=== PATIENT | male | born 1995 | race Hispanic/Latino ===

== ENCOUNTER 2018-05-31 17:31 | Emergency (ER) | payer BC ==
[~2018-05-31] VITALS: Ht 167.6 cm; Wt 84.4 kg
[2018-05-31] MEDS ORDERED: NAPROSYN500 MG PO (19:53)
[2018-05-31 21:54] VITALS: BP 120/88
== END 2018-05-31 20:45 | disposition home or self-care (01) ==
LOC: FSED 17:31
DX: R30.0 Dysuria (principal); R31.9 Hematuria, unspecified; N50.819 Testicular pain, unspecified
CPT/HCPCS: 76870; 81003; 99283

== ENCOUNTER 2020-01-25 13:05 | Emergency (ER) | payer BC ==
[~2020-01-25] VITALS: Ht 167.6 cm; Wt 84.4 kg
[~2020-01-25 13:05] MED LIST: NAPROSYN500 MG PO
[2020-01-25] MEDS ORDERED: CEFTRIAXONE SOD 1 GM VIAL IM NR (13:15)
[2020-01-25] MEDS ORDERED: HYDROCODONE/APAP 10MG-325MG TAB PO NR (13:15)
[2020-01-25 13:29] LABS: BILIRUBIN,URINE NEGATIVE (NEGATIVE); CLARITY,URINE CLEAR (CLEAR); COLOR,URINE YELLOW (YELLOW); KETONES,URINE NEGATIVE (NEGATIVE); LEUKOCYTE ESTERASE ,URINE NEGATIVE (NEGATIVE); MUCUS,URINE RARE (RARE); NITRITE,URINE NEGATIVE (NEGATIVE); PROTEIN,URINE DIPSTICK NEGATIVE (NEGATIVE); RBC,URINE 0-5 /HPF (0-5); URINE UROBILINOGEN 0.2 mg/dL (0.2 - 1); WBC,URINE (MAN) 0-5 /HPF (0-5)
[2020-01-25] MEDS ORDERED: AZITHROMYCIN 250 MG TAB PO ONE (15:15)
--- NOTE | 2020-01-25 15:25 | Diagnostic Imaging Report ---
EXAMINATION: Scrotal ultrasound CLINICAL INDICATION: Testicular pain. COMPARISON: None. TECHNIQUE: Grayscale and color Doppler evaluation of the scrotum was performed in transverse and longitudinal planes. FINDINGS: The right testicle measures 5.1 x 2.6 x 3.9 cm. No masses or calcifications.. The right epididymis measures 1 cm. No nodules or masses.. No right hydrocele. Small Varicocele. Normal flow to the right testicle, without torsion. The left testicle has been removed. The scrotum has a normal appearance, without focal lesions. Impression: No testicular torsion Signed by: Dr. Jesse Jhaveri M.D. on 01/25/2020 3:22 PM
== END 2020-01-25 16:50 | disposition home or self-care (01) ==
LOC: ER 13:05
DX: R30.0 Dysuria (principal); N50.811 Right testicular pain; N45.1 Epididymitis
CPT/HCPCS: 76870; 81001; 87086; 93976; 99284; J0696

== ENCOUNTER 2021-08-13 10:45 | Emergency (ER) | payer BC ==
[~2021-08-13] VITALS: Ht 167.6 cm; Wt 84.4 kg
[2021-08-13] MEDS ORDERED: OFLOXACIN5 ML OT (11:24)
== END 2021-08-13 11:32 | disposition home or self-care (01) ==
LOC: ER 11:26
DX: H92.01 Otalgia, right ear (principal)
CPT/HCPCS: 99283

== ENCOUNTER 2022-09-26 18:23 | Emergency (ER) | payer SELFPAY ==
[~2022-09-26] VITALS: Ht 167.6 cm; Wt 84.4 kg
[~2022-09-26 18:23] MED LIST changes: +OFLOXACIN5 ML OT
== END 2022-09-26 21:30 | disposition home or self-care (01) ==
LOC: ER 18:25
DX: R51.9 Headache, unspecified (principal); S00.83XA Contusion of other part of head, initial encounter; W01.0XXA Fall on same level from slipping, tripping and stumbling without subsequent striking against object, initial encounter; Y92.89 Other specified places as the place of occurrence of the external cause
CPT/HCPCS: 70450; 99283

== ENCOUNTER 2024-07-05 13:30 | Emergency (ER) | payer BC ==
[~2024-07-05] VITALS: Ht 167.6 cm; Wt 93.9 kg
[~2024-07-05 13:30] MED LIST changes: +AZITHROMYCIN250 MG PO; +FIORICET 50-301 EACH PO
[2024-07-05 13:42] VITALS: PULSE 98; RESP 18; TEMP 97.7; O2SAT 99
== END 2024-07-05 14:07 | disposition home or self-care (01) ==
LOC: ER 13:38
DX: R07.0 Pain in throat (principal); I10 Essential (primary) hypertension; F41.9 Anxiety disorder, unspecified
CPT/HCPCS: 99282

== ENCOUNTER 2025-03-01 01:42 | Emergency (ER) | payer BC ==
[~2025-03-01] VITALS: Ht 167.6 cm; Wt 93.9 kg
[2025-03-01 01:55] VITALS: TEMP 98.7
[2025-03-01 02:41] LABS: CLARITY,URINE SL CLOUDY (CLEAR); COLOR,URINE ORANGE (YELLOW); PH,URINE 7 (5 - 7)
[2025-03-01 02:42] LABS: BILIRUBIN,URINE NEGATIVE (NEGATIVE); GLUCOSE, URINE 1+ (NEGATIVE); KETONES,URINE NEGATIVE (NEGATIVE); LEUKOCYTE ESTERASE ,URINE NEGATIVE (NEGATIVE); NITRITE,URINE POSITIVE (NEGATIVE); PROTEIN,URINE DIPSTICK TRACE (NEGATIVE); URINE UROBILINOGEN 1 mg/dL (0.2 - 1)
[2025-03-01 02:50] LABS: BACTERIA,URINE MANY /HPF; EPITHELIAL CELLS,URINE FEW /LPF; WBC,URINE (MAN) 0-5 /HPF (0-5)
[2025-03-01 04:03] VITALS: PULSE 76; RESP 17
[2025-03-01 04:41] VITALS: BP 136/81; PULSE 73; RESP 17; TEMP 98; O2SAT 100
== END 2025-03-01 04:37 | disposition home or self-care (01) ==
LOC: ER 02:00
DX: R30.0 Dysuria (principal); R31.9 Hematuria, unspecified; R09.A9 Foreign body sensation, other site; N50.811 Right testicular pain; I10 Essential (primary) hypertension; F41.9 Anxiety disorder, unspecified
CPT/HCPCS: 70490; 71250; 81001; 87086; 99283